=== PATIENT | female | born 1990 | race Caucasian/White ===

== ENCOUNTER 2016-11-26 17:53 | Emergency (ER) | payer SELFPAY ==
[2016-11-26 18:04] VITALS: BP 136/77; PULSE 94; TEMP 98.1; BMI 33.4
--- NOTE | 2016-11-26 18:16 | EDPRACDOC ---
- General Information Chief Complaint: Sore Throat Stated Complaint: SORE THROAT Time Seen by Provider: 11/26/16 18:04 Information Source: Patient Home Medications: Home Medications No Home Medications 11/26/16 Allergies/Adverse Reactions: Allergies Allergy/AdvReac Type Severity Reaction Status Date / Time No Known Allergies Allergy Verified 11/26/16 18:05 - History of Present Illness Onset: 3-4 days HPI: PT PRESENTS TO ED WITH C/O SORETHROAT SHE STATES HER SON WAS RECENTLY DX WITH STREP AND STATES HER THROAT IS NOW HURTING. NO FEVERS OR CHILLS. Sore Throat Symptoms: Reports: Pain, Hoarse Recent: Reports: Streptococcus Exposure Pain Severity: Reports: None Urinary Output: Normal Oral Intake: Normal Associated Signs and Symptoms: Reports: Other (SORE THROAT) ED Past Medical History - History Reviewed Yes Nurses notes reviewed and agree except as marked Travel Outside of [place] in the Last 3 Months?: No - Patient Medical History GI/ History: Reports: Urinary Tract Infection Psychological History: Denies: Depression Systemic History: Denies: Cancer - Family Medical History Reports: Hypertension (MOTHER), Cancer (PGM,PGF), Stroke (MGF). Denies: Diabetes - Social Medical History Smoking Status: Never smoker ETOH: None Substance Abuse: None Lives With: Other Lives In: Home EDM Review of Systems - Review of Systems ROS Negative Except as Marked: Yes All systems reviewed and were negative except as marked Constitutional: No Symptoms Reported. negative: Fever, Chills, Weakness, Fatigue, Loss of Appetite Eyes: No Symptoms Reported. negative: Redness, Blurred Vision, Double Vision, Discharge, Pain, Light Sensitive, Photophobia Ears: No Symptoms Reported. negative: Pain, Hearing Loss, Drainage, Ear Pulling Throat: Pain, Swelling, Lymphadenopathy, Erythema Nose: No Symptoms Reported. negative: Congestion, Bleeding, Discharge, Injection, Swelling, Deformity, Ecchymosis, Tender, Abrasion, Laceration Mouth: No Symptoms Reported. negative: Pain, Drooling Respiratory: No Symptoms Reported. negative: Cough, Brassy Cough, Barky Cough, Shortness of Breath, Wheezing, Hemoptysis Cardiovascular: No Symptoms Reported. negative: Chest Pain, Palpitations, Syncope, Edema, Orthopnea, PND, Skin Mottling, Cyanosis Gastrointestinal: No Symptoms Reported. negative: Pain, Constipation, Nausea, Vomiting, Diarrhea, Melena, Formula Intolerance Genitourinary: No Symptoms Reported. negative: Dysuria, Hematuria, Frequency, Discharge, Bleeding, Testicular Pain, Neurological: No Symptoms Reported. negative: Headache, Dizziness, Seizure, Numbness, Weakness, Speech Difficulty, Gait Difficulty Musculoskeletal: No Symptoms Reported. negative: Neck, Chestwall, Ribs, Back, Shoulder, Arm, Elbow, Forearm, Wrist, Hand, Pelvis, Hip, Femur, Knee, Leg, Ankle , Foot Integumentary: No Symptoms Reported. negative: Itching, Rash, Bruising, Wound Allergic/Immunologic: No Symptoms Reported. negative: Hives, Itching Hematologic: No Symptoms Reported. negative: Lymphadenopathy, Easy Bruising, Easy Bleeding Endocrine: No Symptoms Reported. negative: Weight Gain, Weight Loss Psychiatric: No Symptoms Reported. negative: Anxiety, Depression, Hallucinations, Insomnia, Suicidal - Physical Exam Constitutional: No apparent distress, Alert (Awake) Oriented to: Time, Person, Place Last recorded Vital Signs: Last Vital Signs Temp 98.1 F 11/26/16 18:01 Pulse 94 11/26/16 18:01 Resp 18 11/26/16 18:01 BP 136/77 11/26/16 18:01 Pulse Ox 96 11/26/16 18:01 Oxygen Pulse Oxygen Saturation 96 O2 Device Oxygen Flow Rate Fraction of Inspired Oxygen ( FIO2) - HEENT Head: Normal ( normocephalic) Eye Exam: Normal (PERRL, EOMI, Sclera white) Oropharynx: Red, Tonsillar Hypertrophy Tympanic Membrane: Normal ENT EAC: Normal TMJ: Normal Nose: No Symptoms Reported (septum midline) Neck: Normal (FROM, trachea at midline) - Respiratory/Cardiovascular Respiratory: Normal - CTA (BBS clear to auscultation without adventitious sounds ) Cardiovascular: Normal (RRR without murmur, gallop or rub) - GI Auscultation: Normal (NABS) Palpation: Normal (Soft,No rebound or guarding, non distended) Tenderness: Non tender Zarco's Sign: Negative - Bladder: Normal - Musculoskeletal Back: Normal (Non-Tender) Extremities: Normal (Normal tone, Pulses 2+ No cyanosis or edema, FROM) - Integumentary Skin: Normal, Warm, Dry Lymphatics: Normal (no adenopathy) - Neurologic Memory Impaired: Normal Motor Function: Normal (Normal tone, Pulses 2+ No cyanosis or edema, FROM) Cranial Nerve: Normal (CN II-X11 intact sensation, strength 5/5) Cerebellar: Normal Mood Description: Normal Perception: Normal - Differential Diagnosis Pharyngitis Streptococcal, Pharyngitis Viral, URI Decision Time to Discharge: 19:21 - Departure Disposition: Home Condition: Stable Final Diagnosis: Acute pharyngitis Instructions: Pharyngitis (ED) Education/Counseling Given To: Patient Education/Counseling Given Regarding: Diagnosis, Treatment, Prognosis, Follow Up Referrals: None,No Provider [Primary Care Provider] - One Week Additional Instructions: MOTRIN AND TYLENOL FOR PAIN OR IF FEVERS DEVELOP. RETURN FOR WORSE OR DIFFERENT SYMPTOMS.
[2016-11-26] MEDS ORDERED: PENICILLIN G BENZATHINE 1.2 MIL UNITS TUBEX IM ONE (18:27)
== END 2016-11-26 19:54 | disposition home or self-care (01) ==
LOC: EDMC 17:53
DX: J02.9 Acute pharyngitis, unspecified (principal)
CPT/HCPCS: 87880; 96372; 99282; J0561

== ENCOUNTER 2016-11-29 11:06 | Emergency (ER) | payer SELFPAY ==
[2016-11-29 11:11] VITALS: BMI 32.9
[2016-11-29 11:12] VITALS: BP 133/82; PULSE 95; TEMP 98.4
--- NOTE | 2016-11-29 11:39 | EDPRACDOC ---
- General Information Chief Complaint: Sore Throat Stated Complaint: SORE THROAT Time Seen by Provider: 11/29/16 11:32 Information Source: Patient Mode Of Arrival: Car Home Medications: Home Medications Prednisone [Deltasone, Orasone] 40 mg PO DAILY 5 Days 11/29/16 Allergies/Adverse Reactions: Allergies Allergy/AdvReac Type Severity Reaction Status Date / Time No Known Allergies Allergy Verified 11/29/16 11:11 - History of Present Illness Onset: MON HPI: PT SEEN IN ED ON MONDAY FOR SORE THROAT, STATES SORE THROAT FOR A WEEK, PT STATES WAS GIVEN "SHOT" FOR STREP, STATES FEELS NO BETTER, STATES TEMPERATURE UP TO 99 LAST NIGHT, CONT TO HAVE NON-PROD COUGH AND CONGESTION, HOARSENESS. Sore Throat Symptoms: Reports: Pain, Hoarse White Spots Location: Denies: Lips, Tongue, Buccal Membrane, Gingiva, Palate, Pharynx, Other Recent: Reports: Streptococcus Exposure Relevant History of: Reports: None Pain Severity: Reports: Moderate Urinary Output: Normal Oral Intake: Normal Associated Signs and Symptoms: Reports: Fever, Cough, Nasal Symptoms ED Past Medical History - History Reviewed Yes Nurses notes reviewed and agree except as marked - Patient Medical History GI/ History: Reports: Urinary Tract Infection Psychological History: Denies: Depression Systemic History: Denies: Cancer - Family Medical History Reports: Hypertension (MOTHER), Cancer (PGM,PGF), Stroke (MGF). Denies: Diabetes - Social Medical History Smoking Status: Never smoker EDM Review of Systems - Review of Systems Constitutional: Fever. negative: Chills Eyes: negative: Blurred Vision, Double Vision Ears: negative: Drainage, Pain Throat: Pain, Hoarseness Nose: negative: Congestion, Discharge Respiratory: Cough. negative: Shortness of Breath, Wheezing Cardiovascular: negative: Chest Pain, Palpitations Gastrointestinal: negative: Nausea, Vomiting Neurological: negative: Headache Integumentary: negative: Rash - Physical Exam Constitutional: Alert (Awake), No apparent distress Oriented to: Time, Person, Place Last recorded Vital Signs: Last Vital Signs Temp 98.4 F 11/29/16 11:11 Pulse 95 11/29/16 11:11 Resp 18 11/29/16 11:11 BP 133/82 11/29/16 11:11 Pulse Ox 95 11/29/16 11:11 Oxygen Pulse Oxygen Saturation 95 O2 Device Oxygen Flow Rate Fraction of Inspired Oxygen ( FIO2) - HEENT Head: Normal ( normocephalic) Eye Exam: Normal (PERRL, EOMI, Sclera white) Oropharynx: Red, Tonsillar Hypertrophy. negative: [place] Tympanic Membrane: Normal ENT EAC: Normal TMJ: Normal Nose: No Symptoms Reported (septum midline) Neck: Normal (FROM, trachea at midline) - Respiratory/Cardiovascular Respiratory: Normal - CTA (BBS clear to auscultation without adventitious sounds ) Cardiovascular: Normal (RRR without murmur, gallop or rub) - Integumentary Skin: Normal, Warm, Dry Lymphatics: Normal (no adenopathy) - Neurologic Memory Impaired: Normal Motor Function: Normal (Normal tone, Pulses 2+ No cyanosis or edema, FROM) Cranial Nerve: Normal (CN II-X11 intact sensation, strength 5/5) Cerebellar: Normal Mood Description: Normal Perception: Normal - Differential Diagnosis Pharyngitis Streptococcal, Pharyngitis Viral Decision Time to Discharge: 11:39 - Departure Disposition: Home Condition: Stable Final Diagnosis: Acute pharyngitis Qualifiers: Pharyngitis/tonsillitis etiology: unspecified etiology Qualified Code(s): J02.9 - Acute pharyngitis, unspecified Instructions: Pharyngitis (ED) Education/Counseling Given To: Patient Education/Counseling Given Regarding: Diagnosis, Treatment, Prognosis, Follow Up Referrals: Raciel Landry MD [Staff Physician] - One Week Prescriptions: Prednisone [Deltasone, Orasone] 40 mg PO DAILY 5 Days Additional Instructions: REST, DRINK PLENTY OF FLUIDS, USE TYLENOL EVERY 4 HOURS AND MOTRIN EVERY 6 HOURS NEEDED FOR PAIN, RETURN TO THE ED FOR ANY WORSENING SYMPTOMS OR CONCERNS.
== END 2016-11-29 11:45 | disposition home or self-care (01) ==
LOC: EDMC 11:06
DX: J02.9 Acute pharyngitis, unspecified (principal)
CPT/HCPCS: 99283